=== PATIENT | female | born 1935 | race Caucasian/White ===

== ENCOUNTER 2019-02-27 09:58 | Day surgery (SDC) | payer MEDICARE, BC ==
[~2019-02-27 09:58] MED LIST: Acetaminophen TAB* 325 MG PO PRN; Buffered Lidocaine 1% SYRIN* 1 ML/SYRINGE INTRADERM ONE
[2019-02-27] MEDS ORDERED: Midazolam* 1 MG/ML 2 ML VIAL (2 MG) ONE (12:32)
[2019-02-27 13:26] VITALS: BP 145/64
[2019-02-27] MEDS ORDERED: Cyclopentolate 1% OPTH.SOL* 2 ML BTL ONE (13:55)
[2019-02-27] MEDS ORDERED: Phenylephrine OPHTH SOL 2.5%* 2 ML ONE (13:55)
[2019-02-27] MEDS ORDERED: acetaZOLAMIDE TAB* 250 MG ONE (13:55)
[2019-02-27] MEDS ORDERED: Ketorolac 0.5% OPHTH (NF) 0.5 % 5 ML BTL ONE (13:55)
[2019-02-27] MEDS ORDERED: Lidocaine 2% EPI 1:200000 MPF*10-20 ML VIAL ONE (13:55)
[2019-02-27] MEDS ORDERED: Neomycin/Polymy/Dex OPTH.SUSP* MAXITROL 0.1% 5 ML ONE (13:55)
[2019-02-27] MEDS ORDERED: Povidone Iodine 5% OPTH* 30 ML BTL ONE (13:55)
[2019-02-27] MEDS ORDERED: Proparacaine 0.5% OPHTH.SOL* 15 ML BTL ONE (13:55)
[2019-02-27] MEDS ORDERED: Lidocaine 1%* 5 ML VIAL ONE (13:55)
--- NOTE | 2019-02-27 22:11 | OP ---
OPERATIVE NOTE: DATE OF OPERATION: 02/27/19 - [facility] DATE OF : 37 SURGEON: Cam Hilliard M.D. PREOPERATIVE DIAGNOSIS: Cataract, left eye. POSTOPERATIVE DIAGNOSIS: Cataract, left eye. OPERATIVE PROCEDURE: Extracapsular cataract extraction with intraocular lens implant left eye. PROCEDURE: The patient was brought to the operating room after being given 1/2 % Alcaine with epinephrine drops in the preoperative area. The eye was prepped and draped in the usual sterile fashion. Sterile drape and eyelid speculum were placed. Again, topical 1/2% Alcaine with epinephrine was given. A paracentesis incision was made at the 3 o'clock position with the No.75 blade. Clear cornea incision 2.2 x 2.2-mm was created at the 6 o'clock position starting at the anterior limbus using the 2.2-mm keratome. The anterior chamber was irrigated with 0.4 mL of 1% non-preservative intracameral lidocaine and filled with DisCoVisc. A capsulorrhexis was completed using the cystotome and the Utrata forceps. Hydrodissection was performed with balanced salt solution. The lens nucleus was removed with the Phacoemulsification handpiece without incident. Cortex was removed with the irrigation-aspiration handpiece. The capsular bag was re-inflated using DisCoVisc and an SN6AT4, 22 implant was inserted with the shooter, oriented to the 177 degree meridian. Horizontal reference made with the patient in seated position in the preoperative area. The irrigation-aspiration handpiece was used to remove all residual DisCoVisc. The eye was refilled with balanced salt solution and the wound checked and found to be watertight. Topical Maxitrol drops were given. All measurements were confirmed with ORA. [id number]/[facility] #: [id number] [facility]
== END 2019-02-27 13:27 | disposition home or self-care (01) ==
LOC: OREAST 09:58
PROVIDERS: ATTEND Specialist
DX: Z01.818 Encounter for other preprocedural examination (principal); H25.813 Combined forms of age-related cataract, bilateral; H43.813 Vitreous degeneration, bilateral; D31.32 Benign neoplasm of left choroid; I10 Essential (primary) hypertension; Z87.891 Personal history of nicotine dependence
CPT/HCPCS: A9270-GY; J2250; V2787

== ENCOUNTER 2019-03-06 07:59 | Day surgery (SDC) | payer MEDICARE, BC ==
[2019-03-06] MEDS ORDERED: Midazolam* 1 MG/ML 2 ML VIAL (2 MG) ONE (10:08)
[2019-03-06 12:23] VITALS: BP 160/65
--- NOTE | 2019-03-06 13:05 | OP ---
DATE OF OPERATION: 03/06/2019. DATE OF : 1935. SURGEON: Cam Hilliard M.D. PREOPERATIVE DIAGNOSIS: Cataract right eye. POSTOPERATIVE DIAGNOSIS: Cataract right eye. OPERATIVE PROCEDURE: Extracapsular cataract extraction with intraocular lens implant right eye. PROCEDURE: The patient was brought to the operating room after being given 1/2% Alcaine with epineph rine drops in the preoperative area. The eye was prepped and draped in the usual sterile fashion. S terile drape and eyelid speculum were placed. Again, topical 1/2% Alcaine with epinephrine was given . A paracentesis incision was made at the 9 o'clock position with the No.75 blade. Clear cornea inc ision 2.2 x 2.2-mm was created at the 12 o'clock position starting at the anterior limbus using the 2 .2-mm keratome. The anterior chamber was irrigated with 0.4 mL of 1% non-preservative intracameral l idocaine and filled with DisCoVisc. A capsulorrhexis was completed using the cystotome and the Utrat a forceps. Hydrodissection was performed with balanced salt solution. The lens nucleus was removed w ith the Phacoemulsification handpiece without incident. Cortex was removed with the irrigation-aspir ation handpiece. The capsular bag was re-inflated using DisCoVisc and an SN6AT4 21.5 implant was ins erted with the shooter, oriented to the 9 degree meridian. All measurements were confirmed with ORA. The horizontal reference de souza were made with the patient seated in the preoperative area. The irr igation-aspiration handpiece was used to remove all residual DisCoVisc. The eye was refilled with ba lanced salt solution and the wound checked and found to be watertight. Topical Maxitrol drops were g esvin. [id number]/[facility] #: [id number]
[2019-03-06] MEDS ORDERED: Ketorolac 0.5% OPHTH (NF) 0.5 % 5 ML BTL ONE (13:41)
[2019-03-06] MEDS ORDERED: Phenylephrine OPHTH SOL 2.5%* 2 ML ONE (13:41)
[2019-03-06] MEDS ORDERED: Cyclopentolate 1% OPTH.SOL* 2 ML BTL ONE (13:41)
[2019-03-06] MEDS ORDERED: Povidone Iodine 5% OPTH* 30 ML BTL ONE (13:41)
[2019-03-06] MEDS ORDERED: Lidocaine 2% EPI 1:200000 MPF*10-20 ML VIAL ONE (13:41)
[2019-03-06] MEDS ORDERED: Lidocaine 1%* 5 ML VIAL ONE (13:41)
[2019-03-06] MEDS ORDERED: acetaZOLAMIDE TAB* 250 MG ONE (13:41)
[2019-03-06] MEDS ORDERED: Proparacaine 0.5% OPHTH.SOL* 15 ML BTL ONE (13:41)
[2019-03-06] MEDS ORDERED: Neomycin/Polymy/Dex OPTH.SUSP* MAXITROL 0.1% 5 ML ONE (13:41)
== END 2019-03-06 11:42 | disposition home or self-care (01) ==
LOC: OREAST 07:59
PROVIDERS: ATTEND Specialist
DX: H25.811 Combined forms of age-related cataract, right eye (principal); H43.813 Vitreous degeneration, bilateral; D31.32 Benign neoplasm of left choroid; Z96.1 Presence of intraocular lens; I10 Essential (primary) hypertension; H25.13 Age-related nuclear cataract, bilateral; Z87.891 Personal history of nicotine dependence
CPT/HCPCS: A9270-GY; J2250; V2787

== ENCOUNTER 2021-07-02 08:45 | Observation (INO) ==
[~2021-07-02 08:45] MED LIST changes: -Acetaminophen TAB* 325 MG PO PRN; +Buffered Lidocaine 1% SYRIN 1 ml INTRADERM ONE; -Buffered Lidocaine 1% SYRIN* 1 ML/SYRINGE INTRADERM ONE; +Lactated Ringers 1000 ml BAG 1,000 ML IV SCH
[2021-07-02] MEDS ORDERED: Propofol 10 MG/ML 20 ML BTL ONE ×2 (12:33→12:46)
[2021-07-02] MEDS ORDERED: Lidocaine 2% PF 5 ML VIAL ONE (12:33)
[2021-07-02] MEDS ORDERED: ceFAZolin 2 GM in NS PREMIX 2 GM/100 ML BAG IVPB ONE (12:41)
[2021-07-02] MEDS ORDERED: Ketamine HCL 50 mg/ml 10 ml VIAL (500 MG) ONE (12:44)
[2021-07-02] MEDS ORDERED: Ropivacaine 5 MG/ML 20 ML VIAL 0.5% (100 MG) ONE (14:37)
[2021-07-02] MEDS ORDERED: Midazolam 2 mg/2 ml VIAL 1 mg/ml 2 ml VIAL (2 mg) ONE ×2 (15:11→15:22)
[2021-07-02] MEDS ORDERED: Phenylephrine 40 mcg/mL 10mL (400mcg) SYRINGE ONE ×2 (15:51→16:14)
[2021-07-02] MEDS ORDERED: EPHEDrine (Pressors) 50 MG/ML VIAL ONE (16:13)
[2021-07-02] MEDS ORDERED: Lactulose 30 ml UDC PO PRN (16:43)
[2021-07-02] MEDS ORDERED: Ondansetron ODT 4 mg TAB 4 MG TAB PO PRN (16:43)
[2021-07-02] MEDS ORDERED: Morphine 2 MG/ML SYRINGE IV PRN (16:43)
[2021-07-02] MEDS ORDERED: diPHENhydraMINE 25 mg TAB PO PRN (16:43)
[2021-07-02] MEDS ORDERED: Ondansetron 4 mg VIAL 2 MG/ML 2 ml VIAL IV PRN (16:43)
[2021-07-02] MEDS ORDERED: Magnesium Hydroxide LIQ 30 ML UDC PO PRN (16:43)
[2021-07-02] MEDS ORDERED: diPHENhydraMINE IV 50 MG/ML 1 ml VIAL (BENADRYL) IV PRN (16:43)
[2021-07-02] MEDS ORDERED: Lactated Ringers 1000 ml BAG 1,000 ML IV SCH (17:00)
[2021-07-02] MEDS ORDERED: Ondansetron 4 mg VIAL 2 MG/ML 2 ml VIAL ONE (17:29)
[2021-07-02] MEDS ORDERED: Albuterol HFA INHALER 8 gm MDI INH PRN (18:37)
[2021-07-02] MEDS: Magnesium Hydroxide LIQ 30 ML UDC PO SCH (20:42)
[2021-07-02] MEDS: ceFAZolin 1 GM ADVAN 1 GM in NS 0.9% 50 ML 50 ML IVPB SCH (22:13)
[2021-07-03 06:07] LABS: Hematocrit 31 % (35-47); Hemoglobin 10.9 g/dL (12.0-16.0); Mean Platelet Volume 7.8 fL (7.4-10.4); Platelet Count 138 10^3/uL (150-450)
[2021-07-03 06:19] LABS: EGFR African American 135.9 (>60); EGFR Non-African American 112.3 (>60); Potassium 4.2 mmol/L (3.5-5.0)
[2021-07-03] MEDS: ceFAZolin 1 GM ADVAN 1 GM in NS 0.9% 50 ML 50 ML IVPB SCH ×2 (06:23→13:45)
[2021-07-03] MEDS: Magnesium Hydroxide LIQ 30 ML UDC PO SCH ×2 (09:24→20:54)
[2021-07-03] MEDS: Vitamin THERAPEUTIC TAB PO SCH (09:25)
[2021-07-04 06:06] LABS: Hematocrit 33 % (35-47); Hemoglobin 11.3 g/dL (12.0-16.0); Platelet Count 160 10^3/uL (150-450)
[2021-07-04] MEDS: Vitamin THERAPEUTIC TAB PO SCH (09:46)
[2021-07-04] MEDS: Magnesium Hydroxide LIQ 30 ML UDC PO SCH (09:48)
[2021-07-04 12:06] VITALS: BP 102/58
== END 2021-07-04 14:10 | disposition home or self-care (01) | DRG 470 ==
LOC: AA 12:05 → INTOOBSV 12:05 → SSU 19:05
PROVIDERS: ADMIT Orthopaedic Surgery Adult Reconstructive Orthopaedic Surgery; ATTEND Internal Medicine

== ENCOUNTER 2021-10-05 17:52 | Inpatient (IN) ==
[2021-10-05] MEDS ORDERED: Magnesium Sulfate IV 1GM/100ML 1 GM/100 ML BAG IV ONE (18:24)
[2021-10-05] MEDS ORDERED: Lactated Ringers 1000 ml BAG 1,000 ML IV ONE (18:24)
[2021-10-05] MEDS ORDERED: Metoprolol Tartrate 5 mg VIAL 5 ml VIAL (1 mg/ml) IV ONE (18:25)
[2021-10-05 18:53] LABS: ABS Basophils 0.1 10^3/ul (0-0.2); ABS Monocytes 0.9 10^3/ul (0-0.8); ABS Neutrophils 5.8 10^3/ul (1.5-7.7); Eosinophil % 0.6 %; Hematocrit 41 % (35-47); Hemoglobin 13.8 g/dL (12.0-16.0); Mean Corpuscular HGB Conc 34 g/dL (31-36); Mean Corpuscular Hemoglobin 31 pg (27-31); Mean Corpuscular Volume 90 fL (80-97); Mean Platelet Volume 7.4 fL (7.4-10.4); Nucleated Red Blood Cells % 0.1; Platelet Count 269 10^3/uL (150-450); Red Blood Count 4.51 10^6 /uL (3.70-4.87); Red Cell Distribution Width 17 % (10-15); White Blood Count 7.7 10^3/uL (3.5-10.8)
[2021-10-05 19:22] LABS: Rapid COVID-19 Molecular Undetected (Undetected)
[2021-10-05 19:28] LABS: Albumin/Globulin Ratio 1.4 (1-3); Globulin 2.8 g/dL (2-4); Potassium 4.5 mmol/L (3.5-5.0); Total Bilirubin 1.9 mg/dL (0.2-1.0); Total Protein 6.8 g/dL (6.4-8.9); eGFR CKD-EPI 94.8 (>60)
[2021-10-05] MEDS ORDERED: Furosemide 40 mg/4 ml IV VIAL IV ONE (20:07)
[2021-10-05] MEDS ORDERED: Albuterol 2.5mg/3 ml (0.083%) NEB.SOLN INH PRN (21:13)
[2021-10-05 21:46] LABS: Osmolality Serum 265 mOsm/kg (275-295)
[2021-10-05 21:59] LABS: Troponin I 0.02 ng/mL (<0.03)
[2021-10-06 06:15] LABS: ABS Eosinophils 0.1 10^3/ul (0-0.6); ABS Lymphocytes 1.2 10^3/ul (1.0-4.8); ABS Monocytes 0.7 10^3/ul (0-0.8); ABS Neutrophils 3.3 10^3/ul (1.5-7.7); Eosinophil % 1.3 %; Hematocrit 40 % (35-47); Hemoglobin 13.3 g/dL (12.0-16.0); Lymphocyte % 22.5 %; Mean Corpuscular HGB Conc 33 g/dL (31-36); Mean Corpuscular Hemoglobin 30 pg (27-31); Mean Corpuscular Volume 89 fL (80-97); Mean Platelet Volume 7.4 fL (7.4-10.4); Platelet Count 247 10^3/uL (150-450); Red Blood Count 4.45 10^6 /uL (3.70-4.87); Red Cell Distribution Width 18 % (10-15); White Blood Count 5.3 10^3/uL (3.5-10.8)
[2021-10-06 06:21] LABS: INR 1.68 (0.86-1.15)
[2021-10-06 06:41] LABS: Calcium 8.9 mg/dL (8.6-10.3); Potassium 3.9 mmol/L (3.5-5.0)
[2021-10-06 06:46] LABS: eGFR CKD-EPI 91.1 (>60)
[2021-10-06] MEDS: Furosemide 40 mg/4 ml IV VIAL IV SCH (09:45)
[2021-10-06] MEDS ORDERED: Potassium Chlor 20 meq TAB.ER PO ONE (10:00)
[2021-10-06] MEDS ORDERED: Albuterol 2.5mg/3 ml (0.083%) NEB.SOLN INH PRN (17:35)
[2021-10-07 06:31] LABS: Albumin 3.4 g/dL (3.2-5.2); Albumin/Globulin Ratio 1.4 (1-3); Calcium 8.6 mg/dL (8.6-10.3); Globulin 2.5 g/dL (2-4); Potassium 3.8 mmol/L (3.5-5.0); Total Bilirubin 1.5 mg/dL (0.2-1.0); Total Protein 5.9 g/dL (6.4-8.9); eGFR CKD-EPI 93.3 (>60)
[2021-10-07] MEDS: Furosemide 40 mg/4 ml IV VIAL IV SCH ×2 (08:26→12:50)
[2021-10-07] MEDS ORDERED: Digoxin IV 0.5 MG/2 ML AMP (0.25 MG/ML) IV SLOW PU ONE ×2 (10:25→16:34)
[2021-10-07] MEDS ORDERED: Potassium Chloride LIQUID 20 MEQ/15 ML LIQUID PO ONE (10:26)
[2021-10-07 13:49] LABS: Calcium 9.1 mg/dL (8.6-10.3); eGFR CKD-EPI 91.1 (>60)
[2021-10-08 00:52] LABS: Calcium 8.5 mg/dL (8.6-10.3); Magnesium 1.8 mg/dL (1.9-2.7); Potassium 3.4 mmol/L (3.5-5.0); eGFR CKD-EPI 91.1 (>60)
[2021-10-08] MEDS ORDERED: Magnesium Sulfate 2 gm BAG 2 GM/50 ML BAG IVPB ONE (07:17)
[2021-10-08] MEDS: Potassium Chlor 20 meq TAB.ER PO SCH ×2 (07:53→13:28)
[2021-10-08 12:46] LABS: ABS Monocytes 0.9 10^3/ul (0-0.8); ABS Neutrophils 5.2 10^3/ul (1.5-7.7); Eosinophil % 0.6 %; Hematocrit 41 % (35-47); Hemoglobin 13.7 g/dL (12.0-16.0); Lymphocyte % 13.7 %; Mean Corpuscular HGB Conc 34 g/dL (31-36); Mean Corpuscular Hemoglobin 31 pg (27-31); Mean Corpuscular Volume 91 fL (80-97); Mean Platelet Volume 7.3 fL (7.4-10.4); Nucleated Red Blood Cells % 0.1; Platelet Count 244 10^3/uL (150-450); Red Blood Count 4.45 10^6 /uL (3.70-4.87); Red Cell Distribution Width 17 % (10-15); White Blood Count 7.2 10^3/uL (3.5-10.8)
[2021-10-08 13:08] LABS: Magnesium 2.8 mg/dL (1.9-2.7); eGFR CKD-EPI 90.3 (>60)
[2021-10-08] MEDS ORDERED: Midazolam 5 mg/5 ml VIAL 1 mg/ml 5 ml VIAL (5 mg) ONE (15:07)
[2021-10-08] MEDS ORDERED: Naloxone 0.4 mg VIAL 0.4 mg/ml 1 ml VIAL ONE (15:07)
[2021-10-08] MEDS ORDERED: fentaNYL 100 mcg/2 ml 50 MCG/ML VIAL ONE (15:07)
[2021-10-08] MEDS ORDERED: Flumazenil 0.5 mg/5 ml 0.1 MG/ML 5 ml VIAL ONE (15:08)
[2021-10-08] MEDS ORDERED: Metoprolol Tartrate 5 mg VIAL 5 ml VIAL (1 mg/ml) ONE (15:48)
[2021-10-09 08:13] LABS: Calcium 8.4 mg/dL (8.6-10.3); Potassium 4.2 mmol/L (3.5-5.0); eGFR CKD-EPI 95.8 (>60)
[2021-10-09] MEDS ORDERED: Senna TAB 8.6 mg TAB PO PRN (18:12)
[2021-10-09] MEDS ORDERED: Magnesium Hydroxide LIQ 30 ML UDC PO PRN (18:14)
[2021-10-10 05:58] LABS: Calcium 8.3 mg/dL (8.6-10.3); Magnesium 1.9 mg/dL (1.9-2.7); Potassium 4.1 mmol/L (3.5-5.0); eGFR CKD-EPI 94.8 (>60)
[2021-10-10] MEDS ORDERED: Magnesium Sulfate 2 gm BAG 2 GM/50 ML BAG IVPB ONE (06:59)
[2021-10-10 12:28] VITALS: BP 141/74
== END 2021-10-10 13:12 | disposition home or self-care (01) | DRG 308 ==
LOC: ED 17:52 → SUATTDRO 21:08 → EDHOLD 21:08 → MEDTELE 22:48
PROVIDERS: ADMIT Student in an Organized Health Care Education/Training Program; ATTEND Internal Medicine